=== PATIENT | female | born 1950 | race Two or more races ===

== ENCOUNTER 2017-01-30 07:01 | Day surgery (SDC) | payer MEDICARE ==
--- NOTE | 2017-01-28 16:15 | Pre-op HX & Phy Repo 2 SIG ---
DATE OF ADMISSION: 01/30/2017 The patient is scheduled for surgery on 01/30/2017. REASON FOR ADMISSION: Bleeding from left nipple. HISTORY OF PRESENT ILLNESS: This 66-year-old, 2, para 2, female presents with a three-month history of sporadic bleeding from the left nipple. She denies any breast pain. There is no family history of breast cancer. She is not taking estrogens. She denies any history of trauma. PAST MEDICAL HISTORY: Previous surgery is limited to a hysterectomy. MEDICATIONS: Benazepril 20 mg daily. ALLERGIES: None known. SOCIAL HISTORY: Tobacco, none. Alcohol, none. FAMILY HISTORY: Negative for diabetes, heart disease, or malignancy. REVIEW OF SYSTEMS: Essentially negative. PHYSICAL EXAMINATION: GENERAL: Reveals a well-developed, well-nourished female, in no acute distress. VITAL SIGNS: Temperature 98.2 degrees, blood pressure 148/73, pulse 76, and respirations 16. HEENT: Normocephalic. Pupils are equal and reactive to light. There is no scleral icterus. NECK: Supple without adenopathy. LUNGS: Clear. HEART: Showed a regular rhythm. BREAST: Shows no masses in either breast nor axilla. The left nipple has a bleeding site at the 9 o'clock position that is the medial aspect of the nipple. ABDOMEN: Soft. There was no organomegaly. EXTREMITIES: Showed no edema. IMPRESSION: Left breast, nipple bleeding. PLAN: The patient was advised to undergo a left breast biopsy to rule out an intraductal papilloma or possibly an intraductal carcinoma. The nature, risks, and benefits of the procedure were explained. Rafael Christianson M.D. DR: Gifty JOB#: [id number] CC:
[~2017-01-30] VITALS: Ht 152.4 cm; Wt 71.2 kg
[2017-01-30] VITALS (11 sets, daily range): BP systolic 133–155; BP diastolic 71–91
[2017-01-30] MEDS ORDERED: ATORVASTATIN CA20 MG ORAL (07:40)
[2017-01-30] MEDS ORDERED: LISINOPRIL5 MG ORAL (07:40)
[2017-01-30] MEDS ORDERED: Bupivacaine 0.5% Inj 30 ml vial INJ ONE (09:24)
[2017-01-30] MEDS ORDERED: Lidocaine 1% Plain 30 ml INJ ONE (09:24)
[2017-01-30] MEDS ORDERED: Midazolam 2mg/2ml Inj ONE (09:30)
[2017-01-30] MEDS ORDERED: Propofol 200mg/20ml IV ONE (09:30)
[2017-01-30] MEDS ORDERED: fentaNYL 100 mcg/2 mL IV ONE (09:30)
[2017-01-30] MEDS ORDERED: Sterile Water Irrig 1000ml IRRIG ONE (09:30)
[2017-01-30] MEDS ORDERED: NS Irrig 1000ml ONE (09:30)
[2017-01-30] MEDS ORDERED: LR 1000ml ONE (09:30)
--- NOTE | 2017-01-30 09:38 | Pre-Procedure Note/Attestation ---
Pre-Procedure Note/Attestation Complete Prior to Procedure Planned Procedure: left Procedure Narrative: left breast biopsy Indications for Procedure Pre-Operative Diagnosis: bloody left nipple discharge Attestation I attest that I discussed the nature of the procedure; its benefits; risks and complications; and alternatives (and the risks and benefits of such alternatives ), prior to the procedure, with the patient (or the patient's legal sales development representative). I attest that, if there was a reasonable possibility of needing a blood transfusion, the patient (or the patient's legal sales development representative) was given the [facility] standardized written summary, pursuant to the Gary Марина Blood Safety Act ([place] Health and Safety Code # 1645, as amended). I attest that I re-evaluated the patient just prior to the surgery and that there has been no change in the patient's H&P, except as documented below:none Rafael Christianson MD Jan 30, 2017 09:38
--- NOTE | 2017-01-30 09:38 | Pre-Procedure Note/Attestation ---
Pre-Procedure Note/Attestation Complete Prior to Procedure Planned Procedure: left Procedure Narrative: left breast biopsy Indications for Procedure Pre-Operative Diagnosis: bloody left nipple discharge Attestation I attest that I discussed the nature of the procedure; its benefits; risks and complications; and alternatives (and the risks and benefits of such alternatives ), prior to the procedure, with the patient (or the patient's legal financial sales representative). I attest that, if there was a reasonable possibility of needing a blood transfusion, the patient (or the patient's legal financial sales representative) was given the [facility] standardized written summary, pursuant to the Gary Марина Blood Safety Act ([place] Health and Safety Code # 1645, as amended). I attest that I re-evaluated the patient just prior to the surgery and that there has been no change in the patient's H&P, except as documented below:none Rafael Christianson MD Jan 30, 2017 09:38
--- NOTE | 2017-01-30 09:38 | Pre-Procedure Note/Attestation ---
Pre-Procedure Note/Attestation Complete Prior to Procedure Planned Procedure: left Procedure Narrative: left breast biopsy Indications for Procedure Pre-Operative Diagnosis: bloody left nipple discharge Attestation I attest that I discussed the nature of the procedure; its benefits; risks and complications; and alternatives (and the risks and benefits of such alternatives ), prior to the procedure, with the patient (or the patient's legal printing supplies sales representative). I attest that, if there was a reasonable possibility of needing a blood transfusion, the patient (or the patient's legal printing supplies sales representative) was given the [facility] standardized written summary, pursuant to the Gary Марина Blood Safety Act ([place] Health and Safety Code # 1645, as amended). I attest that I re-evaluated the patient just prior to the surgery and that there has been no change in the patient's H&P, except as documented below:none Rafael Christianson MD Jan 30, 2017 09:38
[2017-01-30] MEDS ORDERED: LR 1000ml 1,000 ML IVLG SCH (10:27)
[2017-01-30] MEDS ORDERED: Hydromorphone 0.5mg/0.5ml inj IVP PRN (10:30)
[2017-01-30] MEDS ORDERED: Ketorolac 30mg Inj IV PRN (10:30)
[2017-01-30] MEDS ORDERED: Metoclopramide 10mg/2ml Inj IVP PRN (10:30)
[2017-01-30] MEDS ORDERED: fentaNYL 100 mcg/2 mL IV PRN (10:30)
[2017-01-30] MEDS ORDERED: Midazolam 2mg/2ml Inj IVP PRN (10:30)
[2017-01-30] MEDS ORDERED: Acetaminophen (Non formulary) 100 ML IV ONE (11:00)
--- NOTE | 2017-01-30 11:20 | Brief Operative Note ---
Immediate Post Operative Note Operative Note Pre-op Diagnosis: bloody left nipple discharge Procedure: left breast biopsy Post-op Diagnosis: same Findings: consistent w/pre-op dx studies Surgeon: Gwendolyn Christianson MD Anesthesiologist: Fabiana Briceño MD Specimen: yes Complications: none Condition: stable Fluids: 1000 ml crystalloid Estimated Blood Loss: minimal Drains: none Implant(s) used?: No Rafael Christianson MD Jan 30, 2017 11:20
[2017-01-30] MEDS ORDERED: Tylenol #3 tab (300mg/30mg) ORAL PRN (11:30)
[2017-01-30] MEDS ORDERED: HYDROmorphone 1mg/ml Carpuject SUBQ PRN (11:30)
[2017-01-30] MEDS ORDERED: D5 1/2NS 1,000 ML IV SCH (11:30)
[2017-01-30] MEDS ORDERED: Norco 5mg/325mg tab ORAL PRN (11:30)
--- NOTE | 2017-01-30 17:15 | Operative Note - Dictated ---
DATE OF OPERATION: 01/30/2017 PREOPERATIVE DIAGNOSIS: Left breast bloody nipple discharge. POSTOPERATIVE DIAGNOSIS: Left breast bloody nipple discharge. PATHOLOGY: Pending. PROCEDURE: Left breast biopsy. SURGEON: Rafael Christianson M.D. ANESTHESIA: General by laryngeal mask airway. ANESTHESIOLOGIST: Dr. Briceño. INDICATIONS FOR SURGERY: This 66-year-old female, presented with a three-month history of bleeding from the left nipple. She had occasional discomfort from the nipple site. On examination in the clinic, the area of bleeding appeared to be from a duct on the medial aspect of the nipple. She had a normal mammogram and ultrasound. There was no family history of breast carcinoma. The patient was advised to undergo a left breast biopsy to rule out the possibility of an intraductal papilloma or intraductal carcinoma. OPERATIVE FINDINGS: The left breast had an area of bleeding as seen in the clinic along the medial aspect of the nipple. The duct was cannulized. A wedge of breast tissue was excised in the subareolar region. OPERATIVE TECHNIQUE: With the patient in the supine position after induction of adequate general anesthesia, the left breast was prepped and draped in sterile fashion. A time-out was called. The nipple was inspected. Gentle pressure revealed the area of hemorrhage. The duct in question was carefully probed with a small lacrimal duct probe. The probe was removed. A 2-0 Prolene suture was passed into the duct. The skin along the medial border of the circumareolar site was infiltrated with 1% Xylocaine mixed with 0.5% Marcaine solution. A medial circumareolar incision was made. The subcutaneous tissue was divided by sharp dissection with a scalpel. Several oozing points were cauterized. A subareolar flap was raised. The duct in question was identified. An Allis clamp was placed around the ductal complex. The dermis beneath the areola was carefully incised until the suture was seen. A subareolar dissection was then performed excising a generous wedge of breast tissue and fat. The specimen was removed from the operative field and the pathologist was summoned. He was given an explanation for the Prolene suture. The wound was inspected. Several oozing points were cauterized. A retracted bleeding vessel was suture ligated with 3-0 Vicryl [id number] sutures. The deep breast tissue was reapproximated with interrupted 3-0 Vicryl sutures. The subcutaneous tissue was reapproximated with interrupted 3-0 Vicryl sutures. The skin was closed with a running 4-0 Vicryl subcuticular stitch. Sterile dressings were applied. The patient tolerated the procedure well and was returned to the recovery room in stable condition. The estimated blood loss was 10 mL. Rafael Christianson M.D. DR: Gifty JOB#: [id number] CC:
== END 2017-01-30 13:15 | disposition home or self-care (01) ==
LOC: SUR 07:01
DX: D05.12 Intraductal carcinoma in situ of left breast (principal); N64.52 Nipple discharge; Z90.710 Acquired absence of both cervix and uterus
CPT/HCPCS: 19101; J0690; J1885; J2001; J2250; J2704; J3010; J3490; J7120; 94003; 94150